=== PATIENT | male | born 1945 | race Caucasian/White ===

== ENCOUNTER 2020-09-25 14:01 | Inpatient (IN) ==
[2020-09-25 15:38] LABS: Basophils % 0.4 % (0.0-0.8); Eosinophils # 0.3 10*3/uL (0.0-0.87); Eosinophils % 2.5 % (0.00-10.9); Hematocrit 26.3 VOL% (42.0-52.0); Hemoglobin 8.4 GM/DL (14.0-18.0); Immature Granulocytes % 0.4 %; Immature Granulocytes Absolute 0.04 #; Lymphocytes % 8.6 % (21.2-54.2); Mean Corpuscular HGB Conc 31.9 GM/DL (32-36); Mean Corpuscular Volume 87.4 FL (87-102); Mean Platelet Volume 11.2 FL (9.6-12.0); Monocytes % 9.4 % (1.7-12.7); Neutrophils % 78.7 % (38.7-73.9); Platelet Count 210 T/CUMM (130-400); Red Blood Count 3.01 MC/CUMM (3.8-5.5); White Blood Count 11.2 T/CUMM (4-12)
[2020-09-25 15:50] LABS: Alanine Aminotransferase 17 U/L (16-61); Albumin 3.1 G/DL (3.4-5.0); Alkaline Phosphatase 50 U/L (45-117); Aspartate Amino Transferase 12 U/L (0-37); Bilirubin,Total < 0.39 MG/DL (0.2-1.0); Blood Urea Nitrogen 62 MG/DL (7-18); Calcium 8.3 MG/DL (8.5-10.1); Carbon Dioxide 24 MMOL/L (21-32); Estimated Glom Filtration Rate 11 ML/MIN; Glucose 137 MG/DL (74-106); Osmolality,Calculated 302.1 MOS/KG (273-304); Sodium 142 MMOL/L (136-145); Total Protein 6.8 G/DL (6.4-8.3); Troponin I 0.033 NG/ML (0.00-0.045)
[2020-09-25] MEDS ORDERED: ONDANSETRON 4 MG/2 ML VIAL IV PRN (18:07)
[2020-09-25] MEDS ORDERED: DEXTROSE 50% 25 GM/50 ML VIAL IV PRN (18:07)
[2020-09-25] MEDS ORDERED: GLUCAGON 1 MG VIAL IM PRN (18:07)
[2020-09-25] MEDS ORDERED: ACETAMINOPHEN 325 MG TABLET PO PRN (18:07)
[2020-09-25] MEDS ORDERED: HEPARIN DRIP 25,000 UNITS/500 ML PREMIX IV SCH (21:00)
[2020-09-25] MEDS: INSULIN REGULAR 100 UNIT/ML SUBCUT SCH (21:43)
[2020-09-25] MEDS: ZALEPLON 5 MG CAPSULE PO PRN (23:35)
[2020-09-26 06:20] LABS: Basophils % 0.4 % (0.0-0.8); Eosinophils # 0.3 10*3/uL (0.0-0.87); Eosinophils % 2.8 % (0.00-10.9); Hematocrit 25.6 VOL% (42.0-52.0); Hemoglobin 7.9 GM/DL (14.0-18.0); Immature Granulocytes % 0.3 %; Immature Granulocytes Absolute 0.03 #; Lymphocytes % 10.1 % (21.2-54.2); Mean Corpuscular HGB Conc 30.9 GM/DL (32-36); Mean Corpuscular Volume 88.3 FL (87-102); Mean Platelet Volume 11.5 FL (9.6-12.0); Monocytes % 9.4 % (1.7-12.7); Platelet Count 198 T/CUMM (130-400); White Blood Count 9.7 T/CUMM (4-12)
[2020-09-26 06:45] LABS: Albumin 2.9 G/DL (3.4-5.0); Bilirubin,Total 1.8 MG/DL (0.2-1.0); Calcium 8.6 MG/DL (8.5-10.1); Potassium 3.4 MMOL/L (3.5-5.1); Total Protein 6.6 G/DL (6.4-8.3)
[2020-09-26] MEDS ORDERED: ceFAZolin 2,000 MG in PREMIX 1 EACH IV ONE (08:02)
[2020-09-26] MEDS: INSULIN REGULAR 100 UNIT/ML SUBCUT SCH ×4 (08:08→20:12)
[2020-09-26] MEDS ORDERED: BUPIVACAINE MPF 0.25% 30 ML VIAL ONE (08:35)
[2020-09-26] MEDS ORDERED: HEPARIN 5,000 UNIT/1 ML VIAL ONE (08:35)
[2020-09-26] MEDS ORDERED: TISSUE ADHESIVE 1 EACH APPLICATOR TOP ONE (08:35)
[2020-09-26] MEDS ORDERED: LIDOCAINE 1%/EPI INJ 20 ML VIAL ONE (08:35)
[2020-09-26] MEDS: DILTIAZEM CD 180 MG CAPSULE PO SCH (09:07)
[2020-09-26] MEDS: POTASSIUM CHLORIDE 20 MEQ TABLET PO SCH ×2 (09:08→20:10)
[2020-09-26] MEDS: NEBIVOLOL 10 MG TABLET PO SCH (09:08)
[2020-09-26] MEDS: amLODIPine 5 MG TABLET PO SCH (09:08)
[2020-09-26] MEDS: BUMETANIDE 1 MG TABLET PO SCH ×2 (09:57→20:09)
[2020-09-26] MEDS: ROSUVASTATIN 10 MG TABLET PO SCH (09:57)
[2020-09-26] MEDS: ASPIRIN 325 MG TABLET PO SCH (09:57)
[2020-09-26] MEDS: FUROSEMIDE 40 MG TABLET PO SCH (09:58)
[2020-09-26] MEDS: CLOPIDOGREL 75 MG TABLET PO SCH (09:58)
[2020-09-26] MEDS: FERROUS SULFATE 325 MG TABLET PO SCH (09:58)
[2020-09-26] MEDS: TAMSULOSIN 0.4 MG CAPSULE PO SCH (09:58)
[2020-09-26] MEDS: PANTOPRAZOLE 40 MG TABLET PO SCH (09:58)
[2020-09-26] MEDS ORDERED: ETOMIDATE 40 MG/20 ML VIAL IV ONE (12:07)
[2020-09-26] MEDS ORDERED: propofoL 200 MG/20 ML VIAL IV ONE (12:08)
[2020-09-26] MEDS ORDERED: LIDOCAINE 2% 5 ML VIAL ONE (12:08)
[2020-09-26] MEDS ORDERED: DEXMEDETOMIDINE 200 MCG/2 ML VIAL ONE (12:34)
[2020-09-26] MEDS ORDERED: HEPARIN 10,000 UNIT/10 ML VIAL IV SCH (14:15)
[2020-09-26 15:22] LABS: Hepatitis B Core IgM Quant < 0.05 Index; Hepatitis B Surface Ag Quant 0.16 Index; Hepatitis B Surface Ag Result Non-Reactive (NonReactive); Hepatitis C Virus Ab Quant 0.07 Index; Hepatitis C Virus Ab Result Non-Reactive (NonReactive)
[2020-09-26] MEDS: ZALEPLON 5 MG CAPSULE PO PRN (20:09)
[2020-09-27 05:34] LABS: Basophils % 0.4 % (0.0-0.8); Eosinophils # 0.3 10*3/uL (0.0-0.87); Eosinophils % 3.1 % (0.00-10.9); Hematocrit 26.8 VOL% (42.0-52.0); Hemoglobin 8.2 GM/DL (14.0-18.0); Immature Granulocytes % 0.3 %; Immature Granulocytes Absolute 0.03 #; Lymphocytes # 1.2 10*3/uL (1.4-4.0); Lymphocytes % 12.7 % (21.2-54.2); Mean Corpuscular HGB Conc 30.6 GM/DL (32-36); Mean Corpuscular Volume 89.3 FL (87-102); Mean Platelet Volume 11.5 FL (9.6-12.0); Monocytes % 11.5 % (1.7-12.7); Platelet Count 202 T/CUMM (130-400); Red Cell Distribution Width 15.9 % (9.3-17.3); White Blood Count 9.1 T/CUMM (4-12)
[2020-09-27 06:10] LABS: Albumin 2.9 G/DL (3.4-5.0); Bilirubin,Total 0.6 MG/DL (0.2-1.0); Calcium 8.9 MG/DL (8.5-10.1); Total Protein 6.8 G/DL (6.4-8.3)
[2020-09-27] MEDS: INSULIN REGULAR 100 UNIT/ML SUBCUT SCH ×4 (07:15→21:45)
[2020-09-27] MEDS: DILTIAZEM CD 180 MG CAPSULE PO SCH (09:02)
[2020-09-27] MEDS: CLOPIDOGREL 75 MG TABLET PO SCH (09:02)
[2020-09-27] MEDS: PANTOPRAZOLE 40 MG TABLET PO SCH (09:02)
[2020-09-27] MEDS: POTASSIUM CHLORIDE 20 MEQ TABLET PO SCH ×2 (09:03→21:14)
[2020-09-27] MEDS: FERROUS SULFATE 325 MG TABLET PO SCH (09:03)
[2020-09-27] MEDS: amLODIPine 5 MG TABLET PO SCH (09:03)
[2020-09-27] MEDS: ROSUVASTATIN 10 MG TABLET PO SCH (09:03)
[2020-09-27] MEDS: FUROSEMIDE 40 MG TABLET PO SCH (09:03)
[2020-09-27] MEDS: ASPIRIN 325 MG TABLET PO SCH (09:03)
[2020-09-27] MEDS: BUMETANIDE 1 MG TABLET PO SCH ×2 (09:03→21:13)
[2020-09-27] MEDS: TAMSULOSIN 0.4 MG CAPSULE PO SCH (09:03)
[2020-09-27] MEDS: NEBIVOLOL 10 MG TABLET PO SCH (09:03)
[2020-09-27] MEDS: ZALEPLON 5 MG CAPSULE PO PRN (21:13)
[2020-09-27] MEDS: APIXABAN 5 MG TABLET PO SCH (21:14)
[2020-09-28 05:42] LABS: Basophils # 0.1 10*3/uL (0.0-0.2); Basophils % 0.5 % (0.0-0.8); Eosinophils # 0.4 10*3/uL (0.0-0.87); Eosinophils % 3.3 % (0.00-10.9); Hematocrit 28.3 VOL% (42.0-52.0); Hemoglobin 8.7 GM/DL (14.0-18.0); Immature Granulocytes % 0.3 %; Immature Granulocytes Absolute 0.04 #; Lymphocytes # 1.7 10*3/uL (1.4-4.0); Lymphocytes % 13.8 % (21.2-54.2); Mean Corpuscular HGB Conc 30.7 GM/DL (32-36); Mean Corpuscular Volume 90.7 FL (87-102); Monocytes % 9.3 % (1.7-12.7); Neutrophils % 72.8 % (38.7-73.9); Platelet Count 218 T/CUMM (130-400); Red Blood Count 3.12 MC/CUMM (3.8-5.5); Red Cell Distribution Width 15.9 % (9.3-17.3)
[2020-09-28 05:50] LABS: Calcium 8.8 MG/DL (8.5-10.1); Osmolality,Calculated 300.8 MOS/KG (273-304); Potassium 3.9 MMOL/L (3.5-5.1)
[2020-09-28] MEDS: DILTIAZEM CD 180 MG CAPSULE PO SCH (08:00)
[2020-09-28] MEDS: amLODIPine 5 MG TABLET PO SCH (08:00)
[2020-09-28] MEDS: APIXABAN 5 MG TABLET PO SCH ×2 (08:00→21:11)
[2020-09-28] MEDS: ROSUVASTATIN 10 MG TABLET PO SCH (08:00)
[2020-09-28] MEDS: NEBIVOLOL 10 MG TABLET PO SCH (08:00)
[2020-09-28] MEDS: FUROSEMIDE 40 MG TABLET PO SCH (08:00)
[2020-09-28] MEDS: POTASSIUM CHLORIDE 20 MEQ TABLET PO SCH ×2 (08:01→21:12)
[2020-09-28] MEDS: BUMETANIDE 1 MG TABLET PO SCH ×2 (08:01→21:12)
[2020-09-28] MEDS: CLOPIDOGREL 75 MG TABLET PO SCH (08:01)
[2020-09-28] MEDS: FERROUS SULFATE 325 MG TABLET PO SCH (08:01)
[2020-09-28] MEDS: TAMSULOSIN 0.4 MG CAPSULE PO SCH (08:01)
[2020-09-28] MEDS: PANTOPRAZOLE 40 MG TABLET PO SCH (08:01)
[2020-09-28] MEDS: INSULIN REGULAR 100 UNIT/ML SUBCUT SCH ×4 (08:52→21:13)
[2020-09-29 03:19] LABS: Basophils % 0.4 % (0.0-0.8); Eosinophils # 0.3 10*3/uL (0.0-0.87); Eosinophils % 2.5 % (0.00-10.9); Hematocrit 26.7 VOL% (42.0-52.0); Hemoglobin 8.4 GM/DL (14.0-18.0); Immature Granulocytes % 0.4 %; Immature Granulocytes Absolute 0.04 #; Lymphocytes # 1.4 10*3/uL (1.4-4.0); Lymphocytes % 12.5 % (21.2-54.2); Mean Corpuscular HGB Conc 31.5 GM/DL (32-36); Mean Platelet Volume 10.8 FL (9.6-12.0); Monocytes % 10.8 % (1.7-12.7); Neutrophils % 73.4 % (38.7-73.9); Platelet Count 199 T/CUMM (130-400); Red Blood Count 3.07 MC/CUMM (3.8-5.5); Red Cell Distribution Width 15.9 % (9.3-17.3); White Blood Count 11.3 T/CUMM (4-12)
[2020-09-29 03:37] LABS: Calcium 8.3 MG/DL (8.5-10.1); Potassium 3.9 MMOL/L (3.5-5.1)
[2020-09-29] MEDS: INSULIN REGULAR 100 UNIT/ML SUBCUT SCH ×4 (07:30→21:28)
[2020-09-29] MEDS: DILTIAZEM CD 180 MG CAPSULE PO SCH (08:15)
[2020-09-29] MEDS: NEBIVOLOL 10 MG TABLET PO SCH (08:15)
[2020-09-29] MEDS: BUMETANIDE 1 MG TABLET PO SCH ×2 (08:15→21:28)
[2020-09-29] MEDS: TAMSULOSIN 0.4 MG CAPSULE PO SCH (08:16)
[2020-09-29] MEDS: amLODIPine 5 MG TABLET PO SCH (08:16)
[2020-09-29] MEDS: FERROUS SULFATE 325 MG TABLET PO SCH (08:16)
[2020-09-29] MEDS: CLOPIDOGREL 75 MG TABLET PO SCH (08:16)
[2020-09-29] MEDS: FUROSEMIDE 40 MG TABLET PO SCH (08:16)
[2020-09-29] MEDS: PANTOPRAZOLE 40 MG TABLET PO SCH (08:16)
[2020-09-29] MEDS: ROSUVASTATIN 10 MG TABLET PO SCH (08:16)
[2020-09-29] MEDS: POTASSIUM CHLORIDE 20 MEQ TABLET PO SCH ×2 (08:16→21:28)
[2020-09-29] MEDS: APIXABAN 5 MG TABLET PO SCH ×2 (08:16→21:28)
[2020-09-29] MEDS ORDERED: LORazepam 2 MG/1 ML VIAL IM PRN (14:15)
[2020-09-29] MEDS: ZALEPLON 5 MG CAPSULE PO PRN (21:27)
[2020-09-30 05:25] LABS: Basophils # 0.1 10*3/uL (0.0-0.2); Basophils % 0.5 % (0.0-0.8); Eosinophils # 0.4 10*3/uL (0.0-0.87); Hematocrit 26.5 VOL% (42.0-52.0); Hemoglobin 8.4 GM/DL (14.0-18.0); Immature Granulocytes % 0.3 %; Immature Granulocytes Absolute 0.03 #; Lymphocytes # 1.4 10*3/uL (1.4-4.0); Lymphocytes % 14.5 % (21.2-54.2); Mean Corpuscular HGB Conc 31.7 GM/DL (32-36); Mean Corpuscular Volume 87.2 FL (87-102); Monocytes % 10.5 % (1.7-12.7); Neutrophils % 70.2 % (38.7-73.9); Platelet Count 210 T/CUMM (130-400); Red Blood Count 3.04 MC/CUMM (3.8-5.5); Red Cell Distribution Width 15.9 % (9.3-17.3); White Blood Count 9.4 T/CUMM (4-12)
[2020-09-30 05:42] LABS: Osmolality,Calculated 285.4 MOS/KG (273-304); Potassium 3.9 MMOL/L (3.5-5.1)
[2020-09-30] MEDS: INSULIN REGULAR 100 UNIT/ML SUBCUT SCH (08:05)
[2020-09-30 08:06] VITALS: BP 150/108
[2020-09-30] MEDS: DILTIAZEM CD 180 MG CAPSULE PO SCH (09:54)
[2020-09-30] MEDS: CLOPIDOGREL 75 MG TABLET PO SCH (09:55)
[2020-09-30] MEDS: PANTOPRAZOLE 40 MG TABLET PO SCH (09:55)
[2020-09-30] MEDS: FERROUS SULFATE 325 MG TABLET PO SCH (09:55)
[2020-09-30] MEDS: ROSUVASTATIN 10 MG TABLET PO SCH (09:56)
[2020-09-30] MEDS: POTASSIUM CHLORIDE 20 MEQ TABLET PO SCH (09:56)
[2020-09-30] MEDS: BUMETANIDE 1 MG TABLET PO SCH (09:56)
[2020-09-30] MEDS: amLODIPine 5 MG TABLET PO SCH (09:56)
[2020-09-30] MEDS: FUROSEMIDE 40 MG TABLET PO SCH (09:56)
[2020-09-30] MEDS: NEBIVOLOL 10 MG TABLET PO SCH (09:56)
[2020-09-30] MEDS: TAMSULOSIN 0.4 MG CAPSULE PO SCH (09:57)
[2020-09-30] MEDS: APIXABAN 5 MG TABLET PO SCH (09:57)
== END 2020-09-30 11:15 | disposition home or self-care (01) | DRG 673 ==
LOC: N.ED 14:01 → SUATTDRO 18:08 → N.EDINP 18:08 → N.3E 19:48
PROVIDERS: ADMIT Family Medicine; ATTEND Emergency Medicine

== ENCOUNTER 2022-01-13 06:03 | Inpatient (IN) ==
[2022-01-05 11:50] LABS: Basophils # 0.1 10*3/uL (0.0-0.2); Basophils % 0.7 % (0.0-0.8); Eosinophils # 0.3 10*3/uL (0.0-0.87); Eosinophils % 3.9 % (0.00-10.9); Hematocrit 36.5 VOL% (42.0-52.0); Immature Granulocytes % 0.3 %; Immature Granulocytes Absolute 0.03 #; Lymphocytes # 1.6 10*3/uL (1.4-4.0); Lymphocytes % 18.5 % (21.2-54.2); Mean Corpuscular HGB Conc 32.9 GM/DL (32-36); Mean Corpuscular Volume 101.7 FL (87-102); Mean Platelet Volume 11.8 FL (9.6-12.0); Monocytes # 0.8 10*3/uL (0.11-0.8); Monocytes % 8.7 % (1.7-12.7); Neutrophils % 67.9 % (38.7-73.9); Platelet Count 186 T/CUMM (130-400); Red Blood Count 3.59 MC/CUMM (3.8-5.5); Red Cell Distribution Width 14.8 % (9.3-17.3); White Blood Count 8.6 T/CUMM (4-12)
[2022-01-05 12:01] LABS: Calcium 9.5 MG/DL (8.5-10.1); Osmolality,Calculated 294.3 MOS/KG (273-304); Potassium 4.3 MMOL/L (3.5-5.1)
[~2022-01-13 06:03] MED LIST: SODIUM CHLORIDE 0.9% 250 ML IV SCH
[2022-01-13 06:32] LABS: Hematocrit 37.8 VOL% (42.0-52.0); Hemoglobin 12.5 GM/DL (14.0-18.0)
[2022-01-13] MEDS ORDERED: ACETAMINOPHEN INJ 0 MG/0 ML VIAL IV ONE (06:33)
[2022-01-13] MEDS ORDERED: ROCURONIUM 50 MG/5 ML VIAL IV ONE (06:33)
[2022-01-13] MEDS ORDERED: LIDOCAINE 2% 5 ML VIAL ONE (06:33)
[2022-01-13] MEDS ORDERED: fentaNYL 100 MCG/2 ML VIAL ONE ×2 (06:33→08:54)
[2022-01-13] MEDS ORDERED: propofoL 200 MG/20 ML VIAL IV ONE (06:33)
[2022-01-13] MEDS ORDERED: BUPIVACAINE MPF 0.25% 10 ML VIAL ONE (06:34)
[2022-01-13] MEDS ORDERED: LIDOCAINE 1%/EPI INJ 20 ML VIAL ONE (06:34)
[2022-01-13] MEDS ORDERED: TISSUE ADHESIVE 1 EACH APPLICATOR TOP ONE (06:34)
[2022-01-13] MEDS ORDERED: LIDOCAINE 1% 5 ML VIAL ONE (06:51)
[2022-01-13] MEDS ORDERED: DEXAMETHASONE 4 MG/1 ML VIAL ONE (06:51)
[2022-01-13] MEDS ORDERED: ROPIVACAINE 0.5% 30 ML VIAL ONE (06:51)
[2022-01-13] MEDS ORDERED: MIDAZOLAM 2 MG/2 ML VIAL ONE ×3 (06:53→23:29)
[2022-01-13] MEDS ORDERED: PHENYLEPHRINE 1 MG/10 ML SYRINGE IV ONE ×2 (07:52→10:53)
[2022-01-13] MEDS ORDERED: LIDOCAINE 2% TOP JELLY 20 ML VIAL INTRAURETH ONE (08:00)
[2022-01-13] MEDS ORDERED: PHENYLEPHRINE 10 MG/1 ML VIAL IV ONE (08:29)
[2022-01-13] MEDS ORDERED: SODIUM CHLORIDE 0.9% 500 ML IV ONE (08:38)
[2022-01-13] MEDS ORDERED: INDOCYANINE GREEN 25 MG VIAL IV ONE ×2 (09:24)
[2022-01-13] MEDS ORDERED: SUGAMMADEX 200 MG/2 ML VIAL IV ONE (10:05)
[2022-01-13] MEDS ORDERED: ONDANSETRON 4 MG/2 ML VIAL ONE (10:05)
[2022-01-13] MEDS ORDERED: SEVOFLURANE 1 UNIT/15 MINUTE INH ONE (10:25)
[2022-01-13] MEDS ORDERED: hydrALAZINE 20 MG/1 ML VIAL IV ONE (10:46)
[2022-01-13 10:49] LABS: Protein,Urine 100 mg/dL (Negative); RBC,Urine 5 /HPF (0-4); Urine Appearance Cloudy (Clear); Urine Color Yellow (Yellow); Urine Specific Gravity 1.015 (1.001-1.035)
[2022-01-13 10:50] LABS: Bilirubin,Urine Negative (Negative); Blood, Urine Large mg/dL (Negative); Glucose,Urine (UA) Negative (Negative); Ketones,Urine Negative (Negative); Nitrite,Urine Negative (Negative); Urine Urobilinogen 0.2 eU/dL (<2.0)
[2022-01-13] MEDS ORDERED: ALBUMIN 5% 12.5 GM/250 ML VIAL IV ONE ×2 (11:15→11:26)
[2022-01-13] MEDS ORDERED: NOREPINEPHRINE 4 MG/4 ML VIAL IV ONE (11:20)
[2022-01-13 11:26] LABS: Basophils % 0.5 % (0.0-0.8); Eosinophils % 0.5 % (0.00-10.9); Hematocrit 26.4 VOL% (42.0-52.0); Immature Granulocytes % 0.6 %; Immature Granulocytes Absolute 0.05 #; Lymphocytes # 2.3 10*3/uL (1.4-4.0); Lymphocytes % 29.6 % (21.2-54.2); Mean Corpuscular HGB Conc 34.1 GM/DL (32-36); Mean Corpuscular Volume 98.9 FL (87-102); Mean Platelet Volume 11.4 FL (9.6-12.0); Monocytes # 0.2 10*3/uL (0.11-0.8); Monocytes % 3.1 % (1.7-12.7); Neutrophils % 65.7 % (38.7-73.9); Platelet Count 77 T/CUMM (130-400); Red Blood Count 2.67 MC/CUMM (3.8-5.5); Red Cell Distribution Width 14.1 % (9.3-17.3); White Blood Count 7.8 T/CUMM (4-12)
[2022-01-13 11:41] LABS: ABG Base Excess 15.2 MMOL/L (-2.5-2.5); ABG HCO3 39.2 MMOL/L (20-26); ABG PCO2 48.6 MM HG (35-48); ABG PH 7.525 (7.35-7.45); ABG TCO2 36.7 MMOL/L (23-27)
[2022-01-13 11:51] LABS: Platelet Estimate Decreased
[2022-01-13 11:53] LABS: Albumin 2.5 G/DL (3.4-5.0); Bilirubin,Total 0.5 MG/DL (0.20-1.00); Calcium 7.7 MG/DL (8.5-10.1); Osmolality,Calculated 313.7 MOS/KG (273-304); Potassium 3.7 MMOL/L (3.5-5.1); Total Protein 4.5 G/DL (6.4-8.2)
[2022-01-13] MEDS ORDERED: MORPHINE 2 MG/1 ML SYRINGE IV PRN (11:56)
[2022-01-13] MEDS ORDERED: ONDANSETRON 4 MG/2 ML VIAL IV PRN (11:56)
[2022-01-13] MEDS ORDERED: ALBUTEROL/IPRATROPIUM 3 ML NEB RESP TX PRN (11:56)
[2022-01-13] MEDS ORDERED: ACETAMINOPHEN 325 MG TABLET PO PRN (11:56)
[2022-01-13] MEDS ORDERED: LACTATED RINGERS 1,000 ML IV SCH (12:00)
[2022-01-13] MEDS ORDERED: AMIODARONE INJ 450 MG in DEXTROSE 5% 241 ML IV SCH (12:00)
[2022-01-13] MEDS ORDERED: GLUCAGON 1 MG VIAL IM PRN (12:01)
[2022-01-13] MEDS ORDERED: DEXTROSE 10% 250 ML BAG IV PRN (12:01)
[2022-01-13 12:07] LABS: Blood Urea Nitrogen 21 MG/DL (7-18); Calcium 7.7 MG/DL (8.5-10.1); Carbon Dioxide 42 MMOL/L (21-32); Chloride 105 MMOL/L (98-107); Glucose 274 MG/DL (74-106); Osmolality,Calculated 319.3 MOS/KG (273-304); Potassium 3.6 MMOL/L (3.5-5.1); Sodium 155 MMOL/L (136-145)
[2022-01-13] MEDS ORDERED: HEPARIN/NACL 0.9% 2 UNITS/ML 1,000 UNIT/500 ML BAG IV ONE (12:29)
[2022-01-13 12:30] LABS: ABG Base Excess -3.6 MMOL/L (-2.5-2.5); ABG HCO3 21.4 MMOL/L (20-26); ABG PCO2 31.9 MM HG (35-48); ABG PH 7.413 (7.35-7.45)
[2022-01-13 12:33] LABS: Basophils # 0.1 10*3/uL (0.0-0.2); Basophils % 0.4 % (0.0-0.8); Eosinophils # 0.1 10*3/uL (0.0-0.87); Eosinophils % 0.5 % (0.00-10.9); Hematocrit 24.5 VOL% (42.0-52.0); Immature Granulocytes % 0.6 %; Immature Granulocytes Absolute 0.07 #; Lymphocytes # 2.8 10*3/uL (1.4-4.0); Lymphocytes % 24.3 % (21.2-54.2); Mean Corpuscular HGB Conc 32.7 GM/DL (32-36); Mean Corpuscular Volume 102.9 FL (87-102); Mean Platelet Volume 11.9 FL (9.6-12.0); Monocytes # 0.3 10*3/uL (0.11-0.8); Monocytes % 2.6 % (1.7-12.7); Neutrophils % 71.6 % (38.7-73.9); Platelet Count 177 T/CUMM (130-400); Red Blood Count 2.38 MC/CUMM (3.8-5.5); Red Cell Distribution Width 14.4 % (9.3-17.3); White Blood Count 11.3 T/CUMM (4-12)
[2022-01-13] MEDS: DEXMEDETOMIDINE 200 MCG in SODIUM CHLORIDE 0.9% 48 ML IV PRN ×3 (13:00→22:17)
[2022-01-13] MEDS ORDERED: ALBUMIN 25% 12.5 GM/50 ML VIAL IV ONE (13:06)
[2022-01-13] MEDS ORDERED: ALBUMIN 5% 25 GM/500 ML VIAL IV ONE (13:08)
[2022-01-13] MEDS: SODIUM CHLORIDE 0.9% 1,000 ML IV SCH ×3 (13:30→22:35)
[2022-01-13] MEDS ORDERED: PHENYLEPHRINE DRIP 40 MG/250 ML PREMIX IV ONE (13:47)
[2022-01-13] MEDS ORDERED: PHENYLEPHRINE DRIP 40 MG/250 ML PREMIX IV PRN (13:54)
[2022-01-13] MEDS ORDERED: SODIUM CHLORIDE 0.9% 1,000 ML IV PRN ×2 (13:55→16:54)
[2022-01-13] MEDS: NOREPINEPHRINE 16 MG in SODIUM CHLORIDE 0.9% 234 ML IV PRN ×3 (14:22→21:43)
[2022-01-13 15:01] LABS: Hematocrit 24.7 VOL% (42.0-52.0); Hemoglobin 8.1 GM/DL (14.0-18.0)
[2022-01-13 15:26] LABS: Hematocrit 24.3 VOL% (42.0-52.0); Hemoglobin 7.6 GM/DL (14.0-18.0)
[2022-01-13] MEDS: PHENYLEPHRINE INJ 160 MG in SODIUM CHLORIDE 0.9% 234 ML IV PRN (18:14)
[2022-01-13] MEDS: INSULIN LISPRO 100 UNIT/ML SUBCUT SCH (18:46)
[2022-01-13] MEDS: ceFAZolin 2,000 MG/50 ML DUPLEX IV SCH (19:53)
[2022-01-13 20:17] LABS: Hematocrit 31.2 VOL% (42.0-52.0); Hemoglobin 9.6 GM/DL (14.0-18.0)
[2022-01-13] MEDS ORDERED: SODIUM BICARBONATE 50 MEQ/50 ML VIAL IV ONE ×7 (21:00→23:30)
[2022-01-13] MEDS ORDERED: SODIUM BICARBONATE 50 MEQ/50 ML SYRINGE IV ONE ×6 (21:01→22:54)
[2022-01-13 21:05] LABS: ABG Base Excess -22.8 MMOL/L (-2.5-2.5); ABG HCO3 8.2 MMOL/L (20-26); ABG Oxygen Saturation 99.1 % (95-100); ABG PCO2 26.1 MM HG (35-48); ABG TCO2 6.8 MMOL/L (23-27)
[2022-01-13 21:07] LABS: ABG PH 7.033 (7.35-7.45)
[2022-01-13] MEDS: SODIUM BICARB INJ 150 MEQ in STERILE WATER INJ 850 ML IV SCH (22:36)
[2022-01-13 22:45] LABS: ABG Base Excess -8.7 MMOL/L (-2.5-2.5); ABG HCO3 17.4 MMOL/L (20-26); ABG Oxygen Saturation 98.8 % (95-100); ABG PCO2 40.2 MM HG (35-48); ABG PH 7.256 (7.35-7.45); Glucose Heart Surgery 118 MG/DL (74-106); Hematocrit Heart Surgery 23.8 PERCENT (42-52); Hemoglobin Heart Surgery 7.6 G/DL (14.0-18.0); Potassium Heart/CVR 4.6 MMOL/L (3.5-5.1)
[2022-01-13 22:53] LABS: Albumin 2.1 G/DL (3.4-5.0); Bilirubin,Total 1.4 MG/DL (0.20-1.00); Calcium 8.2 MG/DL (8.5-10.1); Potassium 4.5 MMOL/L (3.5-5.1)
[2022-01-13] MEDS ORDERED: ROCURONIUM 100 MG/10 ML VIAL IV ONE (23:10)
[2022-01-13 23:11] LABS: Hematocrit 21.5 VOL% (42.0-52.0)
[2022-01-13 23:45] LABS: ABG Base Excess -0.6 MMOL/L (-2.5-2.5); ABG Oxygen Saturation 99.9 % (95-100); ABG PCO2 52.5 MM HG (35-48); ABG PH 7.305 (7.35-7.45); ABG TCO2 24.7 MMOL/L (23-27); Glucose Heart Surgery 88 MG/DL (74-106); Hematocrit Heart Surgery 23.1 PERCENT (42-52); Hemoglobin Heart Surgery 7.4 G/DL (14.0-18.0); Ionized Calcium Arterial 0.92 MMOL/L (1.21-1.46); PCO2 Patient Temp Arterial 52.5 MMHG; PH Patient Temp Arterial 7.305; Patient Temperature 37 CELCIUS; Sodium Heart/CVR 156 MMOL/L (135-145)
[2022-01-13] MEDS ORDERED: EPINEPHrine 1 MG/ML VIAL ONE ×3 (23:45→23:55)
[2022-01-13] MEDS ORDERED: ePHEDrine 50 MG/ML VIAL ONE (23:54)
[2022-01-13] MEDS ORDERED: CALCIUM CHLORIDE 1,000 MG/10 ML VIAL IV ONE (23:55)
[2022-01-13] MEDS ORDERED: EPINEPHrine 1 MG/10 ML SYRINGE ONE (23:55)
[2022-01-14] MEDS ORDERED: ALBUMIN 5% 12.5 GM/250 ML VIAL IV ONE ×3 (00:38→08:39)
[2022-01-14 00:41] LABS: Basophils # 0.1 10*3/uL (0.0-0.2); Basophils % 0.2 % (0.0-0.8); Hematocrit 31.8 VOL% (42.0-52.0); Immature Granulocytes % 1.4 %; Immature Granulocytes Absolute 0.28 #; Lymphocytes % 9.6 % (21.2-54.2); Mean Corpuscular HGB Conc 31.4 GM/DL (32-36); Mean Corpuscular Volume 95.2 FL (87-102); Mean Platelet Volume 11.6 FL (9.6-12.0); Monocytes # 1.3 10*3/uL (0.11-0.8); Monocytes % 6.3 % (1.7-12.7); NRBC # 0.03 10*3/uL; Neutrophils % 82.5 % (38.7-73.9); Platelet Count 47 T/CUMM (130-400); Red Blood Count 3.34 MC/CUMM (3.8-5.5); Red Cell Distribution Width 17.2 % (9.3-17.3); White Blood Count 20.3 T/CUMM (4-12)
[2022-01-14] MEDS ORDERED: ROCURONIUM 100 MG/10 ML VIAL IV STA (00:58)
[2022-01-14 01:01] LABS: Platelet Estimate Decreased
[2022-01-14 01:02] LABS: Acanthocytes Few; Poikilocytosis Slight
[2022-01-14 01:05] LABS: Lymphocytes 8 % (20-55); Total Cells Counted 100
[2022-01-14] MEDS ORDERED: SODIUM CHLORIDE 0.9% 1,000 ML IV PRN ×7 (01:18→11:40)
[2022-01-14 01:32] LABS: Albumin 1.4 G/DL (3.4-5.0); Bilirubin,Total 1.2 MG/DL (0.20-1.00); Calcium 8.9 MG/DL (8.5-10.1); Osmolality,Calculated 316.9 MOS/KG (273-304); Potassium 2.9 MMOL/L (3.5-5.1); Total Protein 2.7 G/DL (6.4-8.2)
[2022-01-14] MEDS ORDERED: CALCIUM CHLORIDE 1,000 MG/10 ML SYRINGE IV STA (01:39)
[2022-01-14] MEDS: INSULIN LISPRO 100 UNIT/ML SUBCUT SCH ×4 (01:41→18:05)
[2022-01-14] MEDS ORDERED: TRANEXAMIC ACID 1,000 MG in SODIUM CHLORIDE 0.9% 100 ML IV ONE ×2 (01:42→02:30)
[2022-01-14] MEDS ORDERED: HYDROCORTISONE 100 MG VIAL IV ONE (01:43)
[2022-01-14] MEDS ORDERED: CALCIUM CHLORIDE 1,000 MG/10 ML SYRINGE IV ONE (01:46)
[2022-01-14] MEDS ORDERED: SODIUM BICARBONATE 50 MEQ/50 ML VIAL IV STA (01:51)
[2022-01-14] MEDS: NOREPINEPHRINE 16 MG in SODIUM CHLORIDE 0.9% 234 ML IV PRN ×5 (02:01→20:50)
[2022-01-14 02:11] LABS: ABG Base Excess -13.9 MMOL/L (-2.5-2.5); ABG HCO3 13.7 MMOL/L (20-26); ABG Oxygen Saturation 99.4 % (95-100); ABG PCO2 42.6 MM HG (35-48); ABG TCO2 13.9 MMOL/L (23-27)
[2022-01-14 02:12] LABS: ABG PH 7.144 (7.35-7.45)
[2022-01-14] MEDS: ceFAZolin 2,000 MG/50 ML DUPLEX IV SCH (03:20)
[2022-01-14] MEDS ORDERED: LEVOFLOXACIN INJ 750 MG/150 ML PREMIX IV ONE (03:30)
[2022-01-14] MEDS: MORPHINE 2 MG/1 ML SYRINGE IV PRN ×3 (03:48→23:38)
[2022-01-14] MEDS ORDERED: GENTAMICIN INJ 390 MG in SODIUM CHLORIDE 0.9% 100 ML IV ONE (04:00)
[2022-01-14 04:17] LABS: ABG Base Excess -19.2 MMOL/L (-2.5-2.5); ABG HCO3 10.2 MMOL/L (20-26); ABG Oxygen Saturation 98.8 % (95-100); ABG PCO2 25.6 MM HG (35-48); ABG TCO2 8.3 MMOL/L (23-27)
[2022-01-14 04:19] LABS: ABG PH 7.141 (7.35-7.45); Basophils % 0.2 % (0.0-0.8); Eosinophils % 0.1 % (0.00-10.9); Hematocrit 29.5 VOL% (42.0-52.0); Hemoglobin 9.4 GM/DL (14.0-18.0); Immature Granulocytes % 2.2 %; Immature Granulocytes Absolute 0.38 #; Lymphocytes # 2.1 10*3/uL (1.4-4.0); Lymphocytes % 12.1 % (21.2-54.2); Mean Corpuscular HGB Conc 31.9 GM/DL (32-36); Mean Corpuscular Volume 95.8 FL (87-102); Monocytes # 1.1 10*3/uL (0.11-0.8); Monocytes % 6.2 % (1.7-12.7); NRBC # 0.03 10*3/uL; Neutrophils % 79.2 % (38.7-73.9); Platelet Count 107 T/CUMM (130-400); Red Blood Count 3.08 MC/CUMM (3.8-5.5); Red Cell Distribution Width 18.1 % (9.3-17.3); White Blood Count 17.3 T/CUMM (4-12)
[2022-01-14] MEDS: PHENYLEPHRINE INJ 160 MG in SODIUM CHLORIDE 0.9% 234 ML IV PRN ×3 (04:20→17:07)
[2022-01-14 04:28] LABS: INR 2.4
[2022-01-14 04:31] LABS: PT Patient Result 24.9 SECS (10.5-12.0); Partial Thromboplastin Time 93.7 SECS (23.8-32.1)
[2022-01-14 04:58] LABS: Bilirubin,Total 1.7 MG/DL (0.20-1.00); Calcium 9.5 MG/DL (8.5-10.1); Osmolality,Calculated 312.2 MOS/KG (273-304); Potassium 2.7 MMOL/L (3.5-5.1)
[2022-01-14] MEDS ORDERED: MEROPENEM 500 MG in SODIUM CHLORIDE 0.9% 100 ML IV SCH (05:00)
[2022-01-14] MEDS ORDERED: LACTATED RINGERS 1,000 ML IV ONE ×3 (05:04→10:05)
[2022-01-14] MEDS ORDERED: SODIUM BICARBONATE 50 MEQ/50 ML VIAL IV ONE (05:10)
[2022-01-14] MEDS ORDERED: MAGNESIUM SULF RIDER 2 GM/50 ML PREMIX IV PRN (05:13)
[2022-01-14] MEDS ORDERED: POTASSIUM CHLORIDE RIDER 20 MEQ/100 ML PREMIX IV PRN (05:13)
[2022-01-14] MEDS ORDERED: MAGNESIUM SULF RIDER 4 GM/100 ML PREMIX IV PRN (05:13)
[2022-01-14] MEDS ORDERED: POTASSIUM CHLORIDE RIDER 10 MEQ/100 ML PREMIX IV PRN (05:13)
[2022-01-14] MEDS ORDERED: POTASSIUM CHLORIDE RIDER 20 MEQ/100 ML PREMIX IV ONE (05:17)
[2022-01-14] MEDS ORDERED: DEXTROSE 50% 25 GM/50 ML SYRINGE IV ONE (05:30)
[2022-01-14] MEDS: POTASSIUM CHLORIDE RIDER 20 MEQ/100 ML PREMIX IV SCH ×2 (06:19→08:19)
[2022-01-14 06:25] LABS: PT Patient Result 30.8 SECS (10.5-12.0); Partial Thromboplastin Time 81.3 SECS (23.8-32.1)
[2022-01-14] MEDS ORDERED: MIDAZOLAM 2 MG/2 ML VIAL ONE (06:28)
[2022-01-14] MEDS ORDERED: ROCURONIUM 50 MG/5 ML VIAL IV ONE (06:28)
[2022-01-14 06:34] LABS: Hematocrit 27.1 VOL% (42.0-52.0); Hemoglobin 8.5 GM/DL (14.0-18.0)
[2022-01-14] MEDS ORDERED: PROTHROMBIN COMPLEX IV ONE ×2 (06:38→12:00)
[2022-01-14] MEDS ORDERED: MICROFIBRILLAR COLLAGEN POWDER 1 GM CAN TOP ONE (07:26)
[2022-01-14] MEDS ORDERED: methylPREDNISolone SOD SUC 125 MG/2 ML VIAL ONE (07:53)
[2022-01-14] MEDS ORDERED: SEVOFLURANE 1 UNIT/15 MINUTE INH ONE (08:23)
[2022-01-14] MEDS ORDERED: ROSUVASTATIN 10 MG TABLET PO SCH (09:00)
[2022-01-14] MEDS ORDERED: ASPIRIN EC 81 MG TABLET PO SCH (09:00)
[2022-01-14 09:18] LABS: Arterial Base Excess iSTAT -18 MMOL/L (-2.5-2.5); Arterial Bicarbonate iSTAT 9.9 MMOL/L (20-26); Arterial O2 Saturation iSTAT 99 % (95-100); Arterial PCO2 iSTAT 34 MM HG (35-48); Arterial PO2 iSTAT 161 MM HG (80-95); Arterial Total CO2 iSTAT 11 MMO/L (23-27); Arterial pH iSTAT 7.073 (7.35-7.45)
[2022-01-14] MEDS: SODIUM BICARB INJ 150 MEQ in STERILE WATER INJ 850 ML IV SCH ×2 (09:20→16:05)
[2022-01-14 09:43] LABS: Arterial Base Excess iSTAT -19 MMOL/L (-2.5-2.5); Arterial Bicarbonate iSTAT 9.5 MMOL/L (20-26); Arterial O2 Saturation iSTAT 99 % (95-100); Arterial PCO2 iSTAT 32 MM HG (35-48); Arterial PO2 iSTAT 162 MM HG (80-95); Arterial Total CO2 iSTAT 10 MMO/L (23-27); Arterial pH iSTAT 7.082 (7.35-7.45)
[2022-01-14] MEDS ORDERED: HEPARIN 10,000 UNIT/10 ML VIAL IV SCH (10:00)
[2022-01-14] MEDS: PANTOPRAZOLE 40 MG VIAL IV SCH (10:06)
[2022-01-14] MEDS: HYDROCORTISONE 100 MG VIAL IV SCH ×2 (10:06→17:04)
[2022-01-14 11:08] LABS: ABG Base Excess -21.2 MMOL/L (-2.5-2.5); ABG HCO3 8.5 MMOL/L (20-26); ABG Oxygen Saturation 99.6 % (95-100); ABG PCO2 23.4 MM HG (35-48); ABG TCO2 7.1 MMOL/L (23-27)
[2022-01-14 11:09] LABS: ABG PH 7.092 (7.35-7.45)
[2022-01-14 11:11] LABS: Basophils % 0.2 % (0.0-0.8); Hematocrit 20.4 VOL% (42.0-52.0); Immature Granulocytes % 2.1 %; Immature Granulocytes Absolute 0.33 #; Lymphocytes # 1.6 10*3/uL (1.4-4.0); Lymphocytes % 10.2 % (21.2-54.2); Mean Corpuscular HGB Conc 30.9 GM/DL (32-36); Mean Corpuscular Volume 99.5 FL (87-102); Mean Platelet Volume 11.2 FL (9.6-12.0); Monocytes # 0.8 10*3/uL (0.11-0.8); Monocytes % 4.8 % (1.7-12.7); NRBC # 0.04 10*3/uL; Neutrophils % 82.7 % (38.7-73.9); Platelet Count 65 T/CUMM (130-400); Red Blood Count 2.05 MC/CUMM (3.8-5.5); White Blood Count 16.1 T/CUMM (4-12)
[2022-01-14 11:19] LABS: Hemoglobin 6.3 GM/DL (14.0-18.0)
[2022-01-14 11:30] LABS: INR 2.1
[2022-01-14 11:33] LABS: PT Patient Result 22.4 SECS (10.5-12.0); Partial Thromboplastin Time 61.9 SECS (23.8-32.1)
[2022-01-14 11:39] LABS: Band Neutrophils 19 % (0-10); Lymphocytes 10 % (20-55); Platelet Estimate Decreased; Total Cells Counted 100
[2022-01-14] MEDS ORDERED: CALCIUM GLUCONATE RIDER 2,000 MG/100 ML PREMIX IV ONE (11:44)
[2022-01-14 12:04] LABS: ABG Base Excess -21.7 MMOL/L (-2.5-2.5); ABG HCO3 8.3 MMOL/L (20-26); ABG Oxygen Saturation 99.3 % (95-100); ABG PCO2 23.3 MM HG (35-48); ABG TCO2 6.9 MMOL/L (23-27); Glucose Heart Surgery 87 MG/DL (74-106); Hematocrit Heart Surgery 20.5 PERCENT (42-52); Hemoglobin Heart Surgery 6.5 G/DL (14.0-18.0); Potassium Heart/CVR 3.1 MMOL/L (3.5-5.1)
[2022-01-14 12:05] LABS: ABG PH 7.079 (7.35-7.45)
[2022-01-14 15:13] LABS: ABG Base Excess -21.9 MMOL/L (-2.5-2.5); ABG HCO3 8.6 MMOL/L (20-26); ABG Oxygen Saturation 99.2 % (95-100); ABG PCO2 23.8 MM HG (35-48); ABG TCO2 6.8 MMOL/L (23-27)
[2022-01-14 15:17] LABS: ABG PH 7.077 (7.35-7.45)
[2022-01-14 15:20] LABS: Basophils # 0.1 10*3/uL (0.0-0.2); Basophils % 0.2 % (0.0-0.8); Hematocrit 28.7 VOL% (42.0-52.0); Hemoglobin 9.1 GM/DL (14.0-18.0); Immature Granulocytes % 1.8 %; Immature Granulocytes Absolute 0.37 #; Lymphocytes # 2.4 10*3/uL (1.4-4.0); Lymphocytes % 11.7 % (21.2-54.2); Mean Corpuscular HGB Conc 31.7 GM/DL (32-36); Mean Corpuscular Volume 97.6 FL (87-102); Monocytes # 0.7 10*3/uL (0.11-0.8); Monocytes % 3.6 % (1.7-12.7); NRBC # 0.04 10*3/uL; Neutrophils % 82.7 % (38.7-73.9); Platelet Count 119 T/CUMM (130-400); Red Blood Count 2.94 MC/CUMM (3.8-5.5); White Blood Count 20.6 T/CUMM (4-12)
[2022-01-14] MEDS ORDERED: LORazepam 2 MG/1 ML VIAL ONE ×2 (15:25→17:12)
[2022-01-14] MEDS: LORazepam 2 MG/1 ML VIAL IV PRN ×3 (15:35→19:46)
[2022-01-14 15:42] LABS: INR 1.8; PT Patient Result 19.2 SECS (10.5-12.0)
[2022-01-14 15:44] LABS: Partial Thromboplastin Time 46.9 SECS (23.8-32.1)
[2022-01-14 15:48] LABS: Blood Urea Nitrogen 30 MG/DL (7-18); Carbon Dioxide 8 MMOL/L (21-32); Chloride 102 MMOL/L (98-107); Glucose 75 MG/DL (74-106); Osmolality,Calculated 305.7 MOS/KG (273-304); Potassium 3.5 MMOL/L (3.5-5.1); Sodium 152 MMOL/L (136-145)
[2022-01-14 15:51] LABS: Band Neutrophils 20 % (0-10); Lymphocytes 14 % (20-55); Myelocytes 1 %; Nucleated Red Blood Cells 1 (0-5); Total Cells Counted 100
[2022-01-14 15:52] LABS: Platelet Estimate Decreased
[2022-01-14] MEDS: SODIUM BICARB INJ 150 MEQ in DEXTROSE 5% 1,000 ML IV SCH ×2 (16:04→23:55)
[2022-01-14] MEDS ORDERED: ADENOSINE 6 MG/2 ML VIAL ONE (18:32)
[2022-01-14] MEDS ORDERED: ADENOSINE 6 MG/2 ML VIAL IV ONE ×2 (18:33→18:37)
[2022-01-14] MEDS ORDERED: METOPROLOL TARTRATE 5 MG/5 ML VIAL IV ONE ×3 (18:37→21:19)
[2022-01-14] MEDS ORDERED: LORazepam 2 MG/1 ML VIAL IV ONE (18:43)
[2022-01-14] MEDS ORDERED: LACTATED RINGERS 500 ML IV ONE ×2 (18:44→18:50)
[2022-01-14 18:48] LABS: Basophils # 0.1 10*3/uL (0.0-0.2); Basophils % 0.3 % (0.0-0.8); Eosinophils # 5.7 10*3/uL (0.0-0.87); Eosinophils % 25.8 % (0.00-10.9); Hematocrit 30.9 VOL% (42.0-52.0); Immature Granulocytes Absolute 0.66 #; Lymphocytes # 2.5 10*3/uL (1.4-4.0); Lymphocytes % 11.6 % (21.2-54.2); Mean Corpuscular HGB Conc 32.4 GM/DL (32-36); Mean Corpuscular Volume 96.3 FL (87-102); Mean Platelet Volume 11.4 FL (9.6-12.0); Monocytes # 0.7 10*3/uL (0.11-0.8); Monocytes % 3.3 % (1.7-12.7); NRBC # 0.04 10*3/uL; Platelet Count 105 T/CUMM (130-400); Red Blood Count 3.21 MC/CUMM (3.8-5.5); Red Cell Distribution Width 16.7 % (9.3-17.3); White Blood Count 21.9 T/CUMM (4-12)
[2022-01-14 18:53] LABS: Blood Urea Nitrogen 31 MG/DL (7-18); Calcium 8.9 MG/DL (8.5-10.1); Carbon Dioxide 9 MMOL/L (21-32); Chloride 101 MMOL/L (98-107); Glucose 124 MG/DL (74-106); Osmolality,Calculated 312.4 MOS/KG (273-304); Potassium 3.8 MMOL/L (3.5-5.1); Sodium 154 MMOL/L (136-145)
[2022-01-14 19:05] LABS: INR 1.7; PT Patient Result 18.5 SECS (10.5-12.0); Partial Thromboplastin Time 40.4 SECS (23.8-32.1)
[2022-01-14 19:16] LABS: Band Neutrophils 26 % (0-10); Lymphocytes 16 % (20-55); Total Cells Counted 100
[2022-01-14 19:17] LABS: Platelet Estimate Decreased
[2022-01-14 19:34] LABS: ABG Base Excess -21.1 MMOL/L (-2.5-2.5); ABG HCO3 9.2 MMOL/L (20-26); ABG Oxygen Saturation 99.1 % (95-100); ABG PCO2 24.2 MM HG (35-48); ABG TCO2 7.2 MMOL/L (23-27)
[2022-01-14 19:36] LABS: ABG PH 7.101 (7.35-7.45)
[2022-01-14] MEDS: MIDAZOLAM 100 MG in SODIUM CHLORIDE 0.9% 80 ML IV PRN (20:14)
[2022-01-14 23:22] LABS: ABG Base Excess -16.8 MMOL/L (-2.5-2.5); ABG HCO3 11.8 MMOL/L (20-26); ABG Oxygen Saturation 99.2 % (95-100); ABG PCO2 24.7 MM HG (35-48); ABG PH 7.212 (7.35-7.45); ABG TCO2 9.3 MMOL/L (23-27)
[2022-01-14 23:22] LABS: Basophils # 0.1 10*3/uL (0.0-0.2); Basophils % 0.2 % (0.0-0.8); Eosinophils # 5.4 10*3/uL (0.0-0.87); Eosinophils % 22.5 % (0.00-10.9); Hematocrit 29.3 VOL% (42.0-52.0); Hemoglobin 9.9 GM/DL (14.0-18.0); Immature Granulocytes % 2.9 %; Lymphocytes % 8.3 % (21.2-54.2); Mean Corpuscular HGB Conc 33.8 GM/DL (32-36); Mean Corpuscular Volume 91.8 FL (87-102); Mean Platelet Volume 11.2 FL (9.6-12.0); Monocytes # 0.6 10*3/uL (0.11-0.8); Monocytes % 2.6 % (1.7-12.7); NRBC # 0.11 10*3/uL; Neutrophils % 63.5 % (38.7-73.9); Platelet Count 111 T/CUMM (130-400); Red Blood Count 3.19 MC/CUMM (3.8-5.5); Red Cell Distribution Width 16.7 % (9.3-17.3); White Blood Count 23.9 T/CUMM (4-12)
[2022-01-14 23:44] LABS: Platelet Estimate Decreased
[2022-01-14 23:53] LABS: INR 1.8; PT Patient Result 19.4 SECS (10.5-12.0)
[2022-01-15] MEDS: NOREPINEPHRINE 16 MG in SODIUM CHLORIDE 0.9% 234 ML IV PRN ×7 (00:05→21:17)
[2022-01-15] MEDS: INSULIN LISPRO 100 UNIT/ML SUBCUT SCH ×4 (00:18→18:03)
[2022-01-15] MEDS: PHENYLEPHRINE INJ 160 MG in SODIUM CHLORIDE 0.9% 234 ML IV PRN ×4 (00:25→23:05)
[2022-01-15] MEDS: HYDROCORTISONE 100 MG VIAL IV SCH ×3 (01:11→16:45)
[2022-01-15] MEDS: MORPHINE 2 MG/1 ML SYRINGE IV PRN ×2 (01:48→07:44)
[2022-01-15] MEDS: fentaNYL INJ 1,250 MCG in SODIUM CHLORIDE 0.9% 225 ML IV PRN ×3 (02:22→18:06)
[2022-01-15 03:12] LABS: ABG Base Excess -11.6 MMOL/L (-2.5-2.5); ABG HCO3 15.3 MMOL/L (20-26); ABG Oxygen Saturation 99.5 % (95-100); ABG PCO2 25.2 MM HG (35-48); ABG PH 7.326 (7.35-7.45); ABG TCO2 12.1 MMOL/L (23-27)
[2022-01-15 03:14] LABS: Basophils # 0.1 10*3/uL (0.0-0.2); Basophils % 0.2 % (0.0-0.8); Eosinophils # 0.1 10*3/uL (0.0-0.87); Eosinophils % 0.2 % (0.00-10.9); Hemoglobin 9.9 GM/DL (14.0-18.0); Immature Granulocytes % 1.3 %; Immature Granulocytes Absolute 0.35 #; Lymphocytes # 1.2 10*3/uL (1.4-4.0); Lymphocytes % 4.5 % (21.2-54.2); Mean Corpuscular HGB Conc 34.1 GM/DL (32-36); Mean Corpuscular Volume 90.1 FL (87-102); Mean Platelet Volume 11.4 FL (9.6-12.0); Monocytes # 0.7 10*3/uL (0.11-0.8); Monocytes % 2.5 % (1.7-12.7); NRBC # 0.26 10*3/uL; Neutrophils % 91.3 % (38.7-73.9); Platelet Count 105 T/CUMM (130-400); Red Blood Count 3.22 MC/CUMM (3.8-5.5); White Blood Count 25.9 T/CUMM (4-12)
[2022-01-15 03:32] LABS: Platelet Estimate Adequate
[2022-01-15 03:51] LABS: Albumin 2.5 G/DL (3.4-5.0); Bilirubin,Total 2.5 MG/DL (0.20-1.00); Calcium 8.3 MG/DL (8.5-10.1); Osmolality,Calculated 308.1 MOS/KG (273-304); Potassium 3.5 MMOL/L (3.5-5.1); Total Protein 4.2 G/DL (6.4-8.2)
[2022-01-15 04:06] LABS: INR 1.9
[2022-01-15] MEDS: MEROPENEM 500 MG in SODIUM CHLORIDE 0.9% 100 ML IV SCH (05:19)
[2022-01-15 06:56] LABS: ABG Base Excess -6.6 MMOL/L (-2.5-2.5); ABG Oxygen Saturation 99.7 % (95-100); ABG PCO2 23.1 MM HG (35-48); ABG TCO2 14.6 MMOL/L (23-27)
[2022-01-15 07:01] LABS: Basophils % 0.2 % (0.0-0.8); Hematocrit 29.4 VOL% (42.0-52.0); Hemoglobin 10.1 GM/DL (14.0-18.0); Immature Granulocytes % 1.2 %; Lymphocytes # 0.7 10*3/uL (1.4-4.0); Lymphocytes % 2.8 % (21.2-54.2); Mean Corpuscular HGB Conc 34.4 GM/DL (32-36); Mean Corpuscular Volume 89.6 FL (87-102); Mean Platelet Volume 11.6 FL (9.6-12.0); Monocytes # 0.6 10*3/uL (0.11-0.8); Monocytes % 2.2 % (1.7-12.7); Neutrophils % 93.6 % (38.7-73.9); Platelet Count 100 T/CUMM (130-400); Red Blood Count 3.28 MC/CUMM (3.8-5.5); Red Cell Distribution Width 17.1 % (9.3-17.3); White Blood Count 25.2 T/CUMM (4-12)
[2022-01-15 07:23] LABS: Anisocytosis 1+; Band Neutrophils 33 % (0-10); Burr Cells Few; Lymphocytes 3 % (20-55); Metamyelocytes 5 %; Myelocytes 1 %; Nucleated Red Blood Cells 3 (0-5); Platelet Estimate Adequate; Total Cells Counted 100
[2022-01-15 07:24] LABS: Macrocytosis Slight
[2022-01-15 07:26] LABS: PT Patient Result 20.9 SECS (10.5-12.0); Partial Thromboplastin Time 46.3 SECS (23.8-32.1)
[2022-01-15] MEDS: SODIUM BICARB INJ 150 MEQ in DEXTROSE 5% 1,000 ML IV SCH ×3 (07:42→23:39)
[2022-01-15] MEDS: PANTOPRAZOLE 40 MG VIAL IV SCH (08:09)
[2022-01-15] MEDS ORDERED: VANCOMYCIN INJ 1,000 MG in SODIUM CHLORIDE 0.9% 250 ML IV PRN (11:30)
[2022-01-15 11:56] LABS: ABG Base Excess -1.6 MMOL/L (-2.5-2.5); ABG HCO3 23.1 MMOL/L (20-26); ABG Oxygen Saturation 99.2 % (95-100); ABG PCO2 27.8 MM HG (35-48); ABG PH 7.484 (7.35-7.45); ABG TCO2 18.8 MMOL/L (23-27)
[2022-01-15 11:59] LABS: Basophils # 0.1 10*3/uL (0.0-0.2); Basophils % 0.2 % (0.0-0.8); Eosinophils # 0.3 10*3/uL (0.0-0.87); Eosinophils % 1.1 % (0.00-10.9); Hemoglobin 10.3 GM/DL (14.0-18.0); Lymphocytes # 0.6 10*3/uL (1.4-4.0); Lymphocytes % 2.5 % (21.2-54.2); Mean Corpuscular HGB Conc 35.5 GM/DL (32-36); Mean Corpuscular Volume 87.9 FL (87-102); Mean Platelet Volume 11.3 FL (9.6-12.0); Monocytes # 0.6 10*3/uL (0.11-0.8); Monocytes % 2.3 % (1.7-12.7); NRBC # 0.79 10*3/uL; Neutrophils % 91.9 % (38.7-73.9); Platelet Count 84 T/CUMM (130-400); Red Cell Distribution Width 16.9 % (9.3-17.3); White Blood Count 25.5 T/CUMM (4-12)
[2022-01-15 12:13] LABS: INR 2.1; PT Patient Result 21.9 SECS (10.5-12.0); Partial Thromboplastin Time 47.8 SECS (23.8-32.1)
[2022-01-15 12:30] LABS: Albumin 2.4 G/DL (3.4-5.0); Bilirubin,Total 3.5 MG/DL (0.20-1.00); Osmolality,Calculated 304.4 MOS/KG (273-304); Potassium 3.9 MMOL/L (3.5-5.1); Total Protein 4.1 G/DL (6.4-8.2)
[2022-01-15 12:32] LABS: Anisocytosis 1+; Band Neutrophils 48 % (0-10); Burr Cells Few; Lymphocytes 3 % (20-55); Metamyelocytes 7 %; Myelocytes 2 %; Nucleated Red Blood Cells 7 (0-5); Platelet Estimate Decreased; Total Cells Counted 100
[2022-01-15 12:34] LABS: Macrocytosis Slight
[2022-01-15 16:57] LABS: Basophils % 0.2 % (0.0-0.8); Hematocrit 29.4 VOL% (42.0-52.0); Hemoglobin 10.3 GM/DL (14.0-18.0); Immature Granulocytes Absolute 0.74 #; Lymphocytes # 0.6 10*3/uL (1.4-4.0); Lymphocytes % 2.3 % (21.2-54.2); Mean Corpuscular Volume 88.3 FL (87-102); Mean Platelet Volume 12.1 FL (9.6-12.0); Monocytes # 0.5 10*3/uL (0.11-0.8); NRBC # 0.98 10*3/uL; Neutrophils % 92.5 % (38.7-73.9); Platelet Count 76 T/CUMM (130-400); Red Blood Count 3.33 MC/CUMM (3.8-5.5); Red Cell Distribution Width 17.1 % (9.3-17.3); White Blood Count 24.4 T/CUMM (4-12)
[2022-01-15] MEDS ORDERED: VANCOMYCIN INJ 2,500 MG in SODIUM CHLORIDE 0.9% 500 ML IV ONE (17:00)
[2022-01-15 17:31] LABS: Albumin 2.4 G/DL (3.4-5.0); Calcium 7.7 MG/DL (8.5-10.1); Osmolality,Calculated 293.7 MOS/KG (273-304); Potassium 4.2 MMOL/L (3.5-5.1); Total Protein 4.1 G/DL (6.4-8.2)
[2022-01-15 19:18] LABS: Band Neutrophils 18 % (0-10); Lymphocytes 1 % (20-55); Metamyelocytes 3 %; Myelocytes 1 %; Nucleated Red Blood Cells 5 (0-5); Total Cells Counted 100
[2022-01-15 19:19] LABS: Platelet Estimate Decreased
[2022-01-16] MEDS: MIDAZOLAM 100 MG in SODIUM CHLORIDE 0.9% 80 ML IV PRN
[2022-01-16] MEDS: INSULIN LISPRO 100 UNIT/ML SUBCUT SCH ×4 (00:08→17:38)
[2022-01-16] MEDS: NOREPINEPHRINE 16 MG in SODIUM CHLORIDE 0.9% 234 ML IV PRN ×7 (01:02→21:57)
[2022-01-16] MEDS: HYDROCORTISONE 100 MG VIAL IV SCH ×3 (01:11→16:52)
[2022-01-16] MEDS: fentaNYL INJ 1,250 MCG in SODIUM CHLORIDE 0.9% 225 ML IV PRN ×3 (01:52→17:34)
[2022-01-16 03:27] LABS: ABG Base Excess -3.5 MMOL/L (-2.5-2.5); ABG HCO3 21.5 MMOL/L (20-26); ABG Oxygen Saturation 99.1 % (95-100); ABG PH 7.393 (7.35-7.45); ABG TCO2 18.8 MMOL/L (23-27)
[2022-01-16 03:35] LABS: Basophils % 0.2 % (0.0-0.8); Hematocrit 30.8 VOL% (42.0-52.0); Hemoglobin 10.4 GM/DL (14.0-18.0); Immature Granulocytes % 3.7 %; Immature Granulocytes Absolute 0.82 #; Lymphocytes # 0.3 10*3/uL (1.4-4.0); Lymphocytes % 1.2 % (21.2-54.2); Mean Corpuscular HGB Conc 33.8 GM/DL (32-36); Mean Corpuscular Volume 91.1 FL (87-102); Monocytes # 0.5 10*3/uL (0.11-0.8); Monocytes % 2.3 % (1.7-12.7); NRBC # 1.58 10*3/uL; Neutrophils % 92.6 % (38.7-73.9); Platelet Count 77 T/CUMM (130-400); Red Blood Count 3.38 MC/CUMM (3.8-5.5); Red Cell Distribution Width 17.8 % (9.3-17.3); White Blood Count 22.2 T/CUMM (4-12)
[2022-01-16 03:46] LABS: INR 2.7
[2022-01-16 03:48] LABS: PT Patient Result 27.9 SECS (10.5-12.0); Partial Thromboplastin Time 54.9 SECS (23.8-32.1)
[2022-01-16 03:59] LABS: Lymphocytes 5 % (20-55)
[2022-01-16 04:00] LABS: Acanthocytes 1+; Platelet Estimate Decreased; Poikilocytosis 1+; Total Cells Counted 100
[2022-01-16 04:13] LABS: Albumin 2.3 G/DL (3.4-5.0); Bilirubin,Total 4.4 MG/DL (0.20-1.00); Calcium 7.3 MG/DL (8.5-10.1); Osmolality,Calculated 289.1 MOS/KG (273-304); Potassium 4.6 MMOL/L (3.5-5.1); Total Protein 3.9 G/DL (6.4-8.2)
[2022-01-16] MEDS: MEROPENEM 500 MG in SODIUM CHLORIDE 0.9% 100 ML IV SCH (05:04)
[2022-01-16] MEDS: PHENYLEPHRINE INJ 160 MG in SODIUM CHLORIDE 0.9% 234 ML IV PRN ×3 (07:37→22:44)
[2022-01-16] MEDS: SODIUM BICARB INJ 150 MEQ in DEXTROSE 5% 1,000 ML IV SCH ×3 (07:39→23:52)
[2022-01-16] MEDS ORDERED: LEVOFLOXACIN INJ 500 MG/100 ML PREMIX IV SCH (09:00)
[2022-01-16] MEDS ORDERED: MIDAZOLAM 2 MG/2 ML VIAL ONE (10:00)
[2022-01-16] MEDS ORDERED: ROCURONIUM 50 MG/5 ML VIAL IV ONE (10:00)
[2022-01-16] MEDS ORDERED: SEVOFLURANE 1 UNIT/15 MINUTE INH ONE (10:01)
[2022-01-16] MEDS ORDERED: KETAMINE 500 MG/10 ML VIAL ONE (10:01)
[2022-01-16 10:34] VITALS: BP 119/57
[2022-01-16] MEDS: PANTOPRAZOLE 40 MG VIAL IV SCH (10:40)
[2022-01-16] MEDS ORDERED: SALIVA SUBSTITUTE SPRAY 60 ML CAN SWISH/SWAL PRN (10:44)
[2022-01-16 14:12] LABS: ABG HCO3 20.3 MMOL/L (20-26); ABG PCO2 35.7 MM HG (35-48); ABG PH 7.354 (7.35-7.45); ABG TCO2 18.1 MMOL/L (23-27)
[2022-01-16] MEDS ORDERED: ALBUMIN 5% 25.0 GM/500 ML VIAL IV ONE (14:17)
[2022-01-16] MEDS ORDERED: MAGNESIUM SULF RIDER 2 GM/50 ML PREMIX IV ONE ×3 (14:19→15:30)
[2022-01-16] MEDS ORDERED: AMIODARONE 450 MG/9 ML VIAL IV ONE (14:25)
[2022-01-16 14:36] LABS: Basophils # 0.1 10*3/uL (0.0-0.2); Basophils % 0.2 % (0.0-0.8); Hematocrit 31.4 VOL% (42.0-52.0); Hemoglobin 10.3 GM/DL (14.0-18.0); Immature Granulocytes % 2.5 %; Immature Granulocytes Absolute 0.52 #; Lymphocytes # 0.5 10*3/uL (1.4-4.0); Lymphocytes % 2.6 % (21.2-54.2); Mean Corpuscular HGB Conc 32.8 GM/DL (32-36); Mean Corpuscular Volume 93.7 FL (87-102); Mean Platelet Volume 13.4 FL (9.6-12.0); Monocytes # 0.5 10*3/uL (0.11-0.8); Monocytes % 2.5 % (1.7-12.7); NRBC # 1.75 10*3/uL; Neutrophils % 92.2 % (38.7-73.9); Platelet Count 78 T/CUMM (130-400); Red Blood Count 3.35 MC/CUMM (3.8-5.5); White Blood Count 20.8 T/CUMM (4-12)
[2022-01-16 14:41] LABS: Alanine Aminotransferase 983 U/L (16-61); Albumin 2.1 G/DL (3.4-5.0); Alkaline Phosphatase 79 U/L (45-117); Aspartate Amino Transferase 3308 U/L (0-37); Blood Urea Nitrogen 31 MG/DL (7-18); Carbon Dioxide 21 MMOL/L (21-32); Chloride 99 MMOL/L (98-107); Glucose 105 MG/DL (74-106); Osmolality,Calculated 289.1 MOS/KG (273-304); Potassium 4.6 MMOL/L (3.5-5.1); Sodium 142 MMOL/L (136-145); Total Protein 3.6 G/DL (6.4-8.2)
[2022-01-16 14:43] LABS: INR 3.5
[2022-01-16 14:44] LABS: PT Patient Result 35.4 SECS (10.5-12.0); Partial Thromboplastin Time 58.2 SECS (23.8-32.1)
[2022-01-16] MEDS ORDERED: MAGNESIUM SULF RIDER 1 GM/25 ML PREMIX IV ONE (15:00)
[2022-01-16] MEDS ORDERED: ALBUMIN 5% 12.5 GM/250 ML VIAL IV ONE ×2 (15:00)
[2022-01-16] MEDS ORDERED: SODIUM CHLORIDE 0.9% 1,000 ML IV ONE ×2 (15:00→16:00)
[2022-01-16] MEDS ORDERED: AMIODARONE INJ 450 MG in DEXTROSE 5% 241 ML IV SCH ×2 (15:00→20:30)
[2022-01-16 15:03] LABS: Band Neutrophils 6 % (0-10); Lymphocytes 4 % (20-55); Nucleated Red Blood Cells 12 (0-5); Total Cells Counted 100
[2022-01-16 15:05] LABS: Macrocytosis Slight
[2022-01-16 15:06] LABS: Burr Cells Slight; Reactive Lymphocytes Few
[2022-01-16 15:09] LABS: Platelet Estimate Decreased
[2022-01-16] MEDS ORDERED: VASOPRESSIN 100 UNITS in SODIUM CHLORIDE 0.9% 95 ML IV PRN (15:19)
[2022-01-16] MEDS ORDERED: CALCIUM GLUCONATE RIDER 2,000 MG/100 ML PREMIX IV ONE (15:30)
[2022-01-16 20:37] LABS: ABG HCO3 16.5 MMOL/L (20-26); ABG Oxygen Saturation 98.9 % (95-100); ABG PCO2 32.5 MM HG (35-48); ABG PH 7.292 (7.35-7.45); ABG TCO2 14.5 MMOL/L (23-27)
[2022-01-16] MEDS ORDERED: SODIUM BICARBONATE 50 MEQ/50 ML VIAL IV ONE ×2 (20:41→20:42)
[2022-01-17] MEDS: INSULIN LISPRO 100 UNIT/ML SUBCUT SCH ×2 (00:19→06:52)
[2022-01-17] MEDS: NOREPINEPHRINE 16 MG in SODIUM CHLORIDE 0.9% 234 ML IV PRN ×2 (01:22→04:35)
[2022-01-17] MEDS: fentaNYL INJ 1,250 MCG in SODIUM CHLORIDE 0.9% 225 ML IV PRN (01:23)
[2022-01-17] MEDS: HYDROCORTISONE 100 MG VIAL IV SCH (01:27)
[2022-01-17 02:15] LABS: Basophils % 0.2 % (0.0-0.8); Eosinophils % 0.1 % (0.00-10.9); Hematocrit 29.2 VOL% (42.0-52.0); Hemoglobin 9.1 GM/DL (14.0-18.0); Immature Granulocytes % 1.3 %; Immature Granulocytes Absolute 0.24 #; Lymphocytes # 0.5 10*3/uL (1.4-4.0); Lymphocytes % 2.7 % (21.2-54.2); Mean Corpuscular HGB Conc 31.2 GM/DL (32-36); Mean Platelet Volume 13.7 FL (9.6-12.0); Monocytes # 0.6 10*3/uL (0.11-0.8); Monocytes % 3.4 % (1.7-12.7); NRBC # 1.93 10*3/uL; Neutrophils % 92.3 % (38.7-73.9); Platelet Count 49 T/CUMM (130-400); Red Blood Count 2.92 MC/CUMM (3.8-5.5); Red Cell Distribution Width 18.6 % (9.3-17.3); White Blood Count 18.9 T/CUMM (4-12)
[2022-01-17 02:15] LABS: ABG Base Excess -13.3 MMOL/L (-2.5-2.5); ABG Oxygen Saturation 97.6 % (95-100); ABG PCO2 33.2 MM HG (35-48); ABG PH 7.218 (7.35-7.45); ABG TCO2 12.7 MMOL/L (23-27)
[2022-01-17 02:37] LABS: PT Patient Result 59.2 SECS (10.5-12.0)
[2022-01-17 02:39] LABS: INR 6.1
[2022-01-17 02:44] LABS: Lymphocytes 4 % (20-55)
[2022-01-17 02:45] LABS: Acanthocytes Few; Platelet Estimate Decreased; Poikilocytosis Slight; Total Cells Counted 100
[2022-01-17 02:47] LABS: Bilirubin,Total 5.9 MG/DL (0.20-1.00); Calcium 6.7 MG/DL (8.5-10.1); Osmolality,Calculated 284.4 MOS/KG (273-304); Potassium 5.3 MMOL/L (3.5-5.1); Total Protein 3.1 G/DL (6.4-8.2)
[2022-01-17] MEDS: MEROPENEM 500 MG in SODIUM CHLORIDE 0.9% 100 ML IV SCH (06:49)
[2022-01-17] MEDS: SODIUM BICARB INJ 150 MEQ in DEXTROSE 5% 1,000 ML IV SCH (06:50)
[2022-01-17] MEDS ORDERED: EPINEPHrine 1 MG/10 ML SYRINGE IV ONE (22:25)
[2022-01-17] MEDS ORDERED: SODIUM BICARBONATE 50 MEQ/50 ML SYRINGE IV ONE (22:26)
[2022-01-17] MEDS ORDERED: CALCIUM CHLORIDE 1,000 MG/10 ML SYRINGE IV ONE (22:49)
== END 2022-01-17 05:46 | disposition expired | DRG 329 ==
LOC: N.OR 06:03 → N.SDSINP 06:04 → N.ICU 11:44
PROVIDERS: ADMIT Surgery; ATTEND Surgery